=== PATIENT | male | born 1980 | race Caucasian/White ===

== ENCOUNTER 2017-10-11 14:39 | Inpatient (IN) | payer OTHER ==
[~2017-10-11] VITALS: Ht 180.3 cm; Wt 85.5 kg
[2017-10-11 16:00] VITALS: BP 135/88
[2017-10-11 16:05] VITALS: BP 135/88
[2017-10-11] MEDS ORDERED: VENTOLIN 02.5 MG/3 M INH (16:21)
[2017-10-11] MEDS ORDERED: SPIRIVA RESPIMAT4 GM INH (16:23)
[2017-10-11] MEDS ORDERED: Motrin,Rufen800 MG PO (16:24)
[2017-10-11 17:12] LABS: BASO # 0.1 10*3/uL (0.0-0.1); BASO % 0.5 % (0.0-1.0); EOS # 0.2 10*3/uL (0.0-0.4); EOS % 2.2 % (1.0-4.0); HEMATOCRIT 42.6 % (42.0-52.0); HEMOGLOBIN 14.2 g/dl (14.0-18.0); LYMPH # 2.2 10*3/uL (1.3-4.4); LYMPH % 21.7 % (27.0-41.0); MEAN CELL VOLUME 91.6 fl (80.0-94.0); MEAN CORPUSCULAR HGB 30.5 pg (27.0-31.0); MEAN CORPUSCULAR HGB CONC 33.3 g/dl (33.0-37.0); MEAN PLATELET VOLUME 10.5 fl (9.6-12.3); MONO # 0.8 10*3/uL (0.1-1.0); MONO % 7.9 % (3.0-9.0); NEUT # 6.7 10*3/uL (2.3-7.9); NEUT % 67.5 % (47.0-73.0); PLATELET COUNT AUTOMATED 229 10*3/uL (130-400); RED BLOOD COUNT 4.65 10*6/uL (4.50-5.90); RED CELL DISTRI WIDTH 12.3 % (0-14.5); WHITE BLOOD COUNT 9.9 10*3/uL (4.8-10.8)
[2017-10-11 17:32] LABS: ALBUMIN 3.7 gm/dl (3.1-4.5); ALKALINE PHOSPHATASE 60 U/L (45-117); BUN 14 mg/dl (7-24); CHLORIDE 103 mmol/L (98-107); CREATININE 0.98 mg/dL (0.70-1.30); ETHYL ALCOHOL < 3.0 mg/dl (<3); POTASSIUM 3.8 mmol/L (3.5-5.1); SGOT/AST 12 IU/L (3-35); SGPT/ALT 24 U/L (12-78); SODIUM 138 mmol/L (136-145); TOTAL PROTEIN 7.6 gm/dL (6.4-8.2)
[2017-10-11 19:57] LABS: BILIRUBIN NEGATIVE (NEGATIVE); BLOOD NEGATIVE (NEGATIVE); CLARITY CLEAR (CLEAR); COLOR YELLOW (YELLOW); GLUCOSE NEGATIVE (NEGATIVE); KETONE NEGATIVE (NEGATIVE); LEUKO ESTERASE NEGATIVE (NEGATIVE); NITRITE NEGATIVE (NEGATIVE); PH 5.5 (5.0-9.0); SPECIFIC GRAVITY 1.025 (1.005-1.030); UROBILINOGEN 0.2 E.U./dl (0.2-1.0)
[2017-10-11 20:00] VITALS: BP 138/77
[2017-10-11 20:05] LABS: URINE AMPHETAMINES < 1000 (1000ng/ml); URINE BARBITURATES < 200 (200ng/ml); URINE BENZODIAZEPINES < 200 (200ng/ml); URINE CANNABINOIDS (THC) < 50 (50ng/ml); URINE COCAINE < 300 (300ng/ml); URINE METHADONE < 300 (300ng/ml); URINE OPIATES > 300 (300ng/ml)
[2017-10-11 20:07] LABS: WBC 0-2 wbc/hpf (0-5)
[2017-10-11 20:08] LABS: BACTERIA TRACE; URINE PHENCYCLIDINE < 25 (25ng/ml)
[2017-10-12] VITALS: BP 139/77
[2017-10-12 08:00] VITALS: BP 123/86
[2017-10-12 16:00] VITALS: BP 141/85
[2017-10-12 20:00] VITALS: BP 118/67
[2017-10-13] VITALS: BP 115/64
[2017-10-13 08:00] VITALS: BP 127/92
== END 2017-10-13 10:26 | disposition left against medical advice (07) | DRG 894 ==
LOC: 5E 14:39
PROVIDERS: Internal Medicine; Registered Nurse
DX: F11.23 Opioid dependence with withdrawal (principal); B19.20 Unspecified viral hepatitis C without hepatic coma; F12.90 Cannabis use, unspecified, uncomplicated; G89.29 Other chronic pain; J45.909 Unspecified asthma, uncomplicated; M48.061 Spinal stenosis, lumbar region without neurogenic claudication; Z71.6 Tobacco abuse counseling; Z72.0 Tobacco use; Z83.3 Family history of diabetes mellitus; Z80.51 Family history of malignant neoplasm of kidney; Z82.5 Family history of asthma and other chronic lower respiratory diseases